=== PATIENT | female | born 1985 | race Caucasian/White ===

== ENCOUNTER 2016-08-15 13:45 | Emergency (ER) | payer SELFPAY ==
[~2016-08-15] VITALS: Ht 160 cm; Wt 78.1 kg
[2016-08-15 15:46] VITALS: BP 119/73
== END 2016-08-15 15:46 | disposition home or self-care (01) ==
LOC: ED 13:45
DX: R10.13 Epigastric pain (principal); R11.0 Nausea; G43.909 Migraine, unspecified, not intractable, without status migrainosus